=== PATIENT | male | born 1985 | race Caucasian/White ===

== ENCOUNTER 2020-10-30 22:13 | Emergency (ER) | payer BC ==
[~2020-10-30] VITALS: Ht 175.3 cm; Wt 80.0 kg
[~2020-10-30 22:13] MED LIST: HYDR1TAB16 PO; OXYC1TAB14 PO
--- NOTE | 2020-10-30 22:23 | NUR ---
Noel Cordoba ([facility])- [phone]
[2020-10-30 22:47] VITALS: BP 128/82
--- NOTE | 2020-10-30 22:55 | NUR ---
Pt BIBA after family called with concerns for patient. Pt states having difficulty time and took 15-30 percocet about 4hrs ago with attemtps to never wake up. Pt to room, calm and cooperative. All belonings gathered and locked. Pt in secure room, All items removed. Sitter outside room. Pt with Stable VS. Pt on cont O2 monitor. UA provided and sent.
[2020-10-30 23:10] LABS: AMPHETAMINE SCREEN, URINE Negative (Negative); BARBITURATE SCREEN, URINE Negative (Negative); BENZODIAZEPINE SCREEN, URINE Negative (Negative); CANNABINOID SCREEN, URINE Negative (Negative); COCAINE SCREEN, URINE Negative (Negative); METHADONE SCREEN, URINE Negative (Negative); OPIATE SCREEN, URINE Positive (Negative)
[2020-10-30 23:20] LABS: BASOPHILS % (AUTO) 1 % (0-1); EOSINOPHILS % (AUTO) 1 % (1-7); LYMPHOCYTES % (AUTO) 21 % (22-44); MEAN CORPUSCULAR HEMOGLOBIN 33.5 pg (27.5-34.5); MEAN CORPUSCULAR HGB CONC 35.5 g/dL (33.2-36.2); MEAN PLATELET VOLUME 7.7 fL (7.4-10.4); MONOCYTES % (AUTO) 6 % (2-9); NEUTROPHILS % (AUTO) 71 % (42-75); PLATELET COUNT 242 x10^3/uL (130-400); RED BLOOD COUNT 5.13 x10^6/uL (4.38-5.82); RED CELL DISTRIBUTION WIDTH 12.8 % (9.4-14.8)
[2020-10-30 23:22] LABS: MD NO
[2020-10-30 23:30] LABS: ALANINE AMINOTRANSFERASE 27 U/L (12-78); ALBUMIN 3.9 g/dL (3.4-5.0); ANION GAP 8 mmol/L (5-15); CALCIUM 8.5 mg/dL (8.5-10.1); CHLORIDE 108 mmol/L (98-107); CREATININE 1.09 mg/dL (0.7-1.3); SALICYLATE LEVEL 3.9 mg/dL (2.8-20.0)
[2020-10-30 23:41] LABS: ALKALINE PHOSPHATASE 70 U/L (45-117); BILIRUBIN,TOTAL 0.3 mg/dL (0.2-1.0); TOTAL PROTEIN 7.2 g/dL (6.4-8.2)
[2020-10-30] MEDS ORDERED: DIPHENHYDRAMINE 25 MG CAPSULE ONE (23:44)
--- NOTE | 2020-10-30 23:47 | NUR ---
Pt states feeling itchy. Provider aware. Pt medicated per order. Pt remains on cont. pulse ox with no difficulty breathing.
[2020-10-30] MEDS ORDERED: NICOTINE 14MG/24 HR PATCH.TD24 ONE (23:55)
[2020-10-30] MEDS: NICOTINE 14MG/24 HR PATCH.TD24 TD ONE (23:57)
[2020-10-31] MEDS: NICOTINE 14MG/24 HR PATCH.TD24 TD ONE
[2020-10-31] MEDS ORDERED: DIPHENHYDRAMINE 25 MG CAPSULE PO ONE
--- NOTE | 2020-10-31 00:27 | NUR ---
Pt resting camly in bed. States relief of itchiness. Pt free of harm. Sitter outside room. Will continue to monitor.
--- NOTE | 2020-10-31 00:41 | NUR ---
MT: LEGAL HOLD FAXED TO [facility].
--- NOTE | 2020-10-31 00:43 | NUR ---
MT: SPOKE WITH MOHINI FROM [facility] ABOUT TAKING PT FOR ADMISSION.
[2020-10-31] MEDS ORDERED: NICOTINE 14MG/24 HR PATCH.TD24 ONE (01:26)
--- NOTE | 2020-10-31 01:56 | NUR ---
TP: [facility] TO TAKE PENDING COVID SWAB
--- NOTE | 2020-10-31 02:25 | NUR ---
Swab sent. Pt calm in room. Free of harm. No changes.
--- NOTE | 2020-10-31 02:58 | NUR ---
Report to Carol
--- NOTE | 2020-10-31 03:05 | NUR ---
All belongings to floor with patient
== END 2020-10-31 03:14 | disposition other institution (70) ==
LOC: ED 22:43
DX: T14.91XA Suicide attempt, initial encounter (principal); T40.2X2A Poisoning by other opioids, intentional self-harm, initial encounter; T39.1X2A Poisoning by 4-Aminophenol derivatives, intentional self-harm, initial encounter; Z20.822 Contact with and (suspected) exposure to COVID-19; F32.9 Major depressive disorder, single episode, unspecified; F10.10 Alcohol abuse, uncomplicated; F17.210 Nicotine dependence, cigarettes, uncomplicated; Y90.0 Blood alcohol level of less than 20 mg/100 ml; X83.8XXA Intentional self-harm by other specified means, initial encounter; Y93.89 Activity, other specified; Y92.89 Other specified places as the place of occurrence of the external cause; Y99.8 Other external cause status
CPT/HCPCS: 36415; 80053; 80299; 80307; 80320; 80329; 84443; 85025; 87426; 99285; 99406; Q0163; G0480

== ENCOUNTER 2020-10-31 02:18 | Inpatient (IN) | payer BC ==
[~2020-10-31] VITALS: Ht 175.3 cm; Wt 80.0 kg
[2020-10-31] MEDS ORDERED: POLYETHYLENE GLYCOL 17 GM PACKET PO PRN (03:00)
[2020-10-31] MEDS ORDERED: DOCUSATE 100 MG CAPSULE PO PRN (03:00)
[2020-10-31] MEDS ORDERED: BISACODYL 10 MG SUPP PR PRN (03:00)
[2020-10-31 04:10] LABS: MICROSCOPIC NOT IND
[2020-10-31 04:20] VITALS: BP 118/70
[2020-10-31 06:56] LABS: CHOL/HDL RATIO 3.5; FREE T4 (FREE THYROXINE) 0.97 ng/dL (0.76-1.46); LDL/HDL RATIO 1.7 (0.5-3.0)
[2020-10-31 07:34] VITALS: BP 107/68
[2020-10-31] MEDS: HYDROCORTISONE 25 MG SUPP PR SCH (10:00)
[2020-10-31] MEDS ORDERED: NICOTINE 21 MG/24 HR PATCH.TD24 ONE (10:28)
[2020-10-31] MEDS: HYDROCORTISONE CRM 1%, 30GM TP SCH ×2 (11:07→20:33)
[2020-10-31] MEDS: NICOTINE 21 MG/24 HR PATCH.TD24 TD SCH (11:08)
[2020-10-31] MEDS ORDERED: ESCITALOPRAM 10MG TABLET ONE (11:24)
[2020-10-31] MEDS: ESCITALOPRAM 10MG TABLET PO SCH (11:25)
[2020-10-31 19:43] VITALS: BP 115/78
[2020-10-31] MEDS: DOXEPIN 25 MG CAPSULE PO SCH (20:33)
[2020-11-01 08:02] VITALS: BP 123/74
[2020-11-01] MEDS: NICOTINE 21 MG/24 HR PATCH.TD24 TD SCH (08:50)
[2020-11-01] MEDS: ESCITALOPRAM 10MG TABLET PO SCH (08:50)
[2020-11-01] MEDS: HYDROCORTISONE CRM 1%, 30GM TP SCH ×2 (08:51→19:59)
[2020-11-01] MEDS: HYDROCORTISONE 25 MG SUPP PR SCH (09:00)
[2020-11-01 19:58] VITALS: BP 125/78
[2020-11-01] MEDS: DOXEPIN 25 MG CAPSULE PO SCH (19:59)
[2020-11-02 07:47] VITALS: BP 113/75
[2020-11-02] MEDS: HYDROCORTISONE 25 MG SUPP PR SCH (09:00)
[2020-11-02] MEDS: HYDROCORTISONE CRM 1%, 30GM TP SCH ×2 (09:16→20:04)
[2020-11-02] MEDS: ESCITALOPRAM 10MG TABLET PO SCH (09:18)
[2020-11-02] MEDS: NICOTINE 21 MG/24 HR PATCH.TD24 TD SCH (09:18)
[2020-11-02] MEDS: DOXEPIN 25 MG CAPSULE PO SCH (20:03)
[2020-11-02 20:17] VITALS: BP 119/72
[2020-11-03 07:42] VITALS: BP 130/72
[2020-11-03] MEDS: ESCITALOPRAM 10MG TABLET PO SCH (08:31)
[2020-11-03] MEDS: NICOTINE 21 MG/24 HR PATCH.TD24 TD SCH (08:32)
[2020-11-03] MEDS: HYDROCORTISONE CRM 1%, 30GM TP SCH (09:00)
[2020-11-03] MEDS: HYDROCORTISONE 25 MG SUPP PR SCH (09:00)
[2020-11-03] MEDS ORDERED: NICO-587 TD (12:08)
[2020-11-03] MEDS ORDERED: DOXE25CA PO (12:08)
[2020-11-03] MEDS ORDERED: ESCI10TA97 PO (12:08)
== END 2020-11-03 13:12 | disposition home or self-care (01) | DRG 885 ==
LOC: 3E 03:12
PROVIDERS: ADMIT Psychiatry & Neurology Psychosomatic Medicine; ATTEND Psychiatry & Neurology Psychosomatic Medicine
DX: F32.2 Major depressive disorder, single episode, severe without psychotic features (principal); F10.20 Alcohol dependence, uncomplicated; F17.200 Nicotine dependence, unspecified, uncomplicated; G47.00 Insomnia, unspecified; Z91.5 Personal history of self-harm
CPT/HCPCS: 36415; 71045; 80061; 81003; 82607; 84439; 93005